=== PATIENT | female | born 1975 | race Hispanic/Latino ===

== ENCOUNTER 2022-02-20 12:21 | Inpatient (IN) | payer BC, OTHER ==
[2022-02-20] MEDS ORDERED: Sodium Chloride 0.9% 10 ML Syringe FLUSH PRN (12:41)
[2022-02-20] MEDS ORDERED: Sodium Chloride 0.9% 2.5 ML Syringe FLUSH PRN (12:41)
[2022-02-20] MEDS ORDERED: Ondansetron 4 MG/2 ML SDV IVPUSH ONE (12:47)
[2022-02-20] MEDS ORDERED: Sodium Chloride 0.9% 1,000 ML IV STA (12:47)
[2022-02-20] MEDS ORDERED: Morphine 2 MG/ML SYRINGE IVPUSH ONE ×2 (12:47→15:01)
[2022-02-20 13:43] LABS: CARBON DIOXIDE,CO2 25.4 mmol/L (21.0-32.0)
[2022-02-20] MEDS ORDERED: Iopamidol 755 MG/ML 500 ML Multipack Bottle IVPUSH STA (14:42)
[2022-02-20] MEDS ORDERED: Potassium Chloride 20 MEQ in Premix Bag 1 BAG IV ONE (15:27)
[2022-02-20] MEDS ORDERED: Sodium Chloride 0.9% 1,000 ML IV ONE (15:27)
[2022-02-20] MEDS ORDERED: metroNIDAZOLE/Normal Saline 500 MG in Premix Bag 1 BAG IV ONE (15:38)
[2022-02-20] MEDS ORDERED: Ciprofloxacin in D5W 400 MG in Premix Bag 1 BAG IV SCH ×2 (15:45)
[2022-02-20] MEDS ORDERED: Ondansetron 4 MG/2 ML SDV IVPUSH PRN (16:21)
[2022-02-20] MEDS ORDERED: Albuterol/Ipratropium 3.0-0.5 MG/3 ML Neb Soln NEB PRN (16:21)
[2022-02-20] MEDS ORDERED: Acetaminophen 325 MG Tab PO PRN (16:21)
[2022-02-20] MEDS ORDERED: Potassium Chloride 100 ML IV ONE (18:00)
[2022-02-20] MEDS ORDERED: Morphine 2 MG/ML SYRINGE IVPUSH PRN (18:27)
[2022-02-20] MEDS: Pantoprazole 40 MG in Sodium Chloride 0.9% 10 ML IVPUSH SCH (18:29)
[2022-02-20] MEDS ORDERED: NS with KCl 40mEq 1,000 ML IV ONE (18:45)
[2022-02-21] MEDS: metroNIDAZOLE/Normal Saline 500 MG in Premix Bag 1 BAG IV SCH ×4 (00:06→17:27)
[2022-02-21] MEDS: Ciprofloxacin in D5W 400 MG in Premix Bag 1 BAG IV SCH ×4 (04:13→16:08)
[2022-02-21] MEDS: Lactated Ringers 1,000 ML IV SCH ×2 (04:14→21:49)
[2022-02-21 07:01] LABS: CARBON DIOXIDE,CO2 23.3 mmol/L (21.0-32.0); POTASSIUM,K 3.3 mmol/L (3.5-5.1)
[2022-02-21] MEDS: Pantoprazole 40 MG in Sodium Chloride 0.9% 10 ML IVPUSH SCH (17:23)
[2022-02-22] MEDS: metroNIDAZOLE/Normal Saline 500 MG in Premix Bag 1 BAG IV SCH ×3 (00:25→11:10)
[2022-02-22] MEDS: Ciprofloxacin in D5W 400 MG in Premix Bag 1 BAG IV SCH ×2 (03:41)
[2022-02-22 06:26] LABS: CARBON DIOXIDE,CO2 27.5 mmol/L (21.0-32.0); POTASSIUM,K 3.2 mmol/L (3.5-5.1)
[2022-02-22] MEDS ORDERED: Potassium Chloride 20 MEQ Tab.ER PO ONE (09:00)
== END 2022-02-22 12:40 | disposition home or self-care (01) | DRG 249 ==
LOC: MW.ED 12:21 → MW.MS 15:49
PROVIDERS: ADMIT Internal Medicine; ATTEND Internal Medicine
DX: K52.9 Noninfective gastroenteritis and colitis, unspecified (principal); E87.6 Hypokalemia; Z20.822 Contact with and (suspected) exposure to COVID-19; N39.0 Urinary tract infection, site not specified
CPT/HCPCS: 36415; 74177; 74177-26; 80053; 81001; 83690; 83735; 84100; 84484; 84703; 85025; 87045; 87046; 87324; 87328; 87329; 87338; 87449; 87899; 93005; A9270-GY; C9113; J0744; J2270; J2405; J3480; J3490; J7030; J7120; Q9967; U0002

== ENCOUNTER 2022-06-25 14:18 | Emergency (ER) | payer BC, OTHER ==
[2022-06-25 16:54] LABS: CORONAVIRUS COVID-19 NAA NEGATIVE (NEGATIVE); INFLUENZA A NAA POSITIVE (NEGATIVE); INFLUENZA B NAA NEGATIVE (NEGATIVE); RESPIRATORY SYNCYTIAL VIR NAA NEGATIVE (NEGATIVE)
== END 2022-06-25 17:57 | disposition home or self-care (01) ==
LOC: MW.ED 14:18
DX: J11.1 Influenza due to unidentified influenza virus with other respiratory manifestations (principal); Z90.49 Acquired absence of other specified parts of digestive tract; Z20.822 Contact with and (suspected) exposure to COVID-19
CPT/HCPCS: 0241U; 71045; 99285